=== PATIENT | female | born 1975 | race Caucasian/White ===

== ENCOUNTER 2017-11-24 13:54 | Inpatient (IN) | payer MEDICAID ==
[~2017-11-24] VITALS: Ht 152.4 cm; Wt 105.7 kg
[2017-11-24 14:02] VITALS: Ht 152.4 cm; Wt 105.7 kg
[2017-11-24 15:31] LABS: BASOPHIL % 0.4 % (0-2); PLATELET COUNT 277 x10^3mcL (130-400)
[2017-11-24 15:32] LABS: RED CELL DISTRIBUTION WIDTH 14.7 % (11.5-14.5)
[2017-11-24 15:35] LABS: CALCIUM 8.2 mg/dL (8.5-10.1); CARBON DIOXIDE 30.1 mmol/L (21-32); CHLORIDE SERUM 105 mmol/L (98-107); CREATININE SERUM 0.8 mg/dL (0.6-1.0); GFR1 > 60 mL/min; GLUCOSE SERUM 76 mg/dL (74-106); POTASSIUM SERUM 3.6 mmol/L (3.5-5.1); SODIUM SERUM 141 mmol/L (136-145)
[2017-11-24 19:43] LABS: microscopic required? NO
[2017-11-24 19:47] LABS: UA SPECIFIC GRAVITY 1.015 (1.005-1.035); urine erythrocyte NEGATIVE (NEGATIVE)
[2017-11-24] MEDS ORDERED: SYNTHROID0.15 MG PO (19:47)
[2017-11-24] MEDS ORDERED: ATIVAN1 MG PO (19:48)
[2017-11-24] MEDS ORDERED: ZANTAC 150150 MG PO (19:48)
[2017-11-24] MEDS ORDERED: SINGULAIR10 MG PO (19:48)
[2017-11-24] MEDS ORDERED: NEURONTIN600 MG PO (19:48)
[2017-11-24] MEDS ORDERED: PAXIL10 MG PO (19:48)
[2017-11-24] MEDS ORDERED: MORPHINE SULFAT15 M7 PO (19:48)
[2017-11-24 19:49] LABS: MAGNESIUM 1.9 mg/dL (1.8-2.4); PHOSPHOROUS 3.3 mg/dL (2.5-4.9)
[2017-11-24] MEDS ORDERED: VENTOLIN H0.09 MG/A1 IH (19:49)
[2017-11-24] MEDS ORDERED: SPIRIVA18 MC1 INH (19:49)
[2017-11-24 19:54] LABS: CHOLESTEROL/HDL RATIO 5.6
[2017-11-24 19:56] LABS: AMPHETAMINE QUAL UR NONE DETECTED (See below)
[2017-11-24 19:58] LABS: T3 TOTAL 0.78 ng/mL
[2017-11-24 20:17] VITALS: BP 117/59
[2017-11-24 20:25] LABS: FREE T4 0.99 ng/dL (0.76-1.46); FREE THYROXINE INDEX 2.5 ug/dL (1.4-4.5); T4(THYROXINE) 7.6 ug/dL (4.7-13.3)
[2017-11-25 00:06] VITALS: BP 117/59
[2017-11-25 05:44] VITALS: BP 113/61
[2017-11-25 06:16] LABS: PLATELET COUNT 265 x10^3mcL (130-400); RED CELL DISTRIBUTION WIDTH 14.5 % (11.5-14.5)
[2017-11-25 06:24] LABS: CALCIUM 7.9 mg/dL (8.5-10.1); CHLORIDE SERUM 105 mmol/L (98-107); CREATININE SERUM 0.8 mg/dL (0.6-1.0); GFR1 > 60 mL/min; GLUCOSE SERUM 155 mg/dL (74-106); MAGNESIUM 1.8 mg/dL (1.8-2.4); PHOSPHOROUS 2.7 mg/dL (2.5-4.9); POTASSIUM SERUM 3.8 mmol/L (3.5-5.1); SODIUM SERUM 138 mmol/L (136-145)
[2017-11-25 07:50] LABS: BASOPHIL % 0 % (0-2)
[2017-11-25 09:09] VITALS: BP 119/60
[2017-11-25 16:39] VITALS: BP 105/52
[2017-11-25 20:41] VITALS: BP 108/46
[2017-11-26 05:59] VITALS: BP 123/65
[2017-11-26 06:11] LABS: BASOPHIL % 0.1 % (0-2); PLATELET COUNT 244 x10^3mcL (130-400); RED CELL DISTRIBUTION WIDTH 13.6 % (11.5-14.5)
[2017-11-26 06:32] LABS: AMYLASE 26 U/L (25-115); CALCIUM 7.8 mg/dL (8.5-10.1); CARBON DIOXIDE 29.2 mmol/L (21-32); CHLORIDE SERUM 107 mmol/L (98-107); CHOLESTEROL 178 mg/dL (<200); CHOLESTEROL/HDL RATIO 4.3; CREATININE SERUM 0.7 mg/dL (0.6-1.0); GFR1 > 60 mL/min; GLUCOSE SERUM 75 mg/dL (74-106); HDL CHOLESTEROL 41 mg/dL (40-60); LIPASE 50 IU/L (73-393); MAGNESIUM 2.2 mg/dL (1.8-2.4); POTASSIUM SERUM 3.6 mmol/L (3.5-5.1); SODIUM SERUM 141 mmol/L (136-145); TRIGLYCERIDES 59 mg/dL (<150)
[2017-11-26 08:30] VITALS: BP 136/77
[2017-11-26 16:00] VITALS: BP 117/67
[2017-11-26 17:00] VITALS: BP 153/81
[2017-11-26 18:43] VITALS: BP 144/85
[2017-11-26 19:23] LABS: BASOPHIL % 0.3 % (0-2); PLATELET COUNT 245 x10^3mcL (130-400)
[2017-11-26 19:26] LABS: RED CELL DISTRIBUTION WIDTH 14.8 % (11.5-14.5)
[2017-11-26 19:43] LABS: CARBON DIOXIDE 29.5 mmol/L (21-32); CHLORIDE SERUM 103 mmol/L (98-107); CREATININE SERUM 0.9 mg/dL (0.6-1.0); GFR1 > 60 mL/min; GLUCOSE SERUM 123 mg/dL (74-106); SODIUM SERUM 142 mmol/L (136-145)
[2017-11-26 19:47] LABS: POTASSIUM SERUM 2.8 mmol/L (3.5-5.1)
[2017-11-26 20:16] VITALS: BP 126/80
[2017-11-27 05:24] VITALS: BP 129/69
[2017-11-27 06:34] LABS: CALCIUM 7.8 mg/dL (8.5-10.1); CARBON DIOXIDE 31.6 mmol/L (21-32); CHLORIDE SERUM 104 mmol/L (98-107); CREATININE SERUM 0.8 mg/dL (0.6-1.0); GFR1 > 60 mL/min; GLUCOSE SERUM 81 mg/dL (74-106); POTASSIUM SERUM 3.8 mmol/L (3.5-5.1); SODIUM SERUM 142 mmol/L (136-145)
[2017-11-27 06:50] LABS: BASOPHIL % 0.4 % (0-2); PLATELET COUNT 267 x10^3mcL (130-400); RED CELL DISTRIBUTION WIDTH 14.5 % (11.5-14.5)
[2017-11-27 09:20] VITALS: BP 124/77
[2017-11-27 13:01] VITALS: BP 136/81
[2017-11-27] MEDS ORDERED: NORCO1 TA2 PO (16:01)
[2017-11-27 17:11] VITALS: BP 123/71
[2017-11-27 17:27] VITALS: BP 123/71
== END 2017-11-27 17:31 | disposition home or self-care (01) | DRG 248 ==
LOC: ED 13:54 → MU 18:33 → DU 11-26 17:39
PROVIDERS: Emergency Medicine; Internal Medicine; Surgery
PROC: 0W9G4ZZ Drainage of Peritoneal Cavity, Percutaneous Endoscopic Approach (ICD-10-PCS; principal; 2017-11-25 12:30)
DX: K65.8 Other peritonitis (principal); J96.00 Acute respiratory failure, unspecified whether with hypoxia or hypercapnia; E66.2 Morbid (severe) obesity with alveolar hypoventilation; N83.201 Unspecified ovarian cyst, right side; E83.51 Hypocalcemia; K52.9 Noninfective gastroenteritis and colitis, unspecified; Z68.42 Body mass index [BMI] 45.0-49.9, adult; F41.8 Other specified anxiety disorders; J30.2 Other seasonal allergic rhinitis; G89.29 Other chronic pain; M54.5 Low back pain; E89.0 Postprocedural hypothyroidism; E78.00 Pure hypercholesterolemia, unspecified; Z85.850 Personal history of malignant neoplasm of thyroid; Z90.710 Acquired absence of both cervix and uterus; J45.909 Unspecified asthma, uncomplicated; G47.33 Obstructive sleep apnea (adult) (pediatric)
CPT/HCPCS: 36600; 82962; 83880; 84439; 94150; J0330; J1170; J1200; J1885; J2001; J2270; J2405; J2704; J2710; J2930; J3010; J3480; J3490; J7030; J7120; J7620; Q0162

== ENCOUNTER 2017-11-28 06:27 | Emergency (ER) | payer MEDICAID ==
[~2017-11-28] VITALS: Ht 154.9 cm; Wt 98.9 kg
[~2017-11-28 06:27] MED LIST: ATIVAN1 MG PO; MORPHINE SULFAT15 M7 PO; NEURONTIN600 MG PO; NORCO1 TA2 PO; PAXIL10 MG PO; SINGULAIR10 MG PO; SPIRIVA18 MC1 INH; SYNTHROID0.15 MG PO; VENTOLIN H0.09 MG/A1 IH; ZANTAC 150150 MG PO
[2017-11-28 06:45] VITALS: Ht 154.9 cm; Wt 98.9 kg
[2017-11-28 09:42] LABS: BASOPHIL % 1.3 % (0-2); PLATELET COUNT 303 x10^3mcL (130-400)
[2017-11-28 09:56] LABS: RED CELL DISTRIBUTION WIDTH 14.8 % (11.5-14.5)
[2017-11-28 11:26] VITALS: BP 117/64
== END 2017-11-28 11:26 | disposition home or self-care (01) ==
LOC: ED 06:27
PROVIDERS: Emergency Medicine
DX: N83.202 Unspecified ovarian cyst, left side (principal); N83.201 Unspecified ovarian cyst, right side; Z88.0 Allergy status to penicillin; Z88.1 Allergy status to other antibiotic agents; Z88.2 Allergy status to sulfonamides; Z90.710 Acquired absence of both cervix and uterus; F41.9 Anxiety disorder, unspecified; F32.9 Major depressive disorder, single episode, unspecified; Z98.890 Other specified postprocedural states
CPT/HCPCS: J2270

== ENCOUNTER 2017-12-01 11:50 | Emergency (ER) | payer MEDICAID ==
[~2017-12-01] VITALS: Ht 154.9 cm; Wt 97.1 kg
[2017-12-01 11:58] VITALS: Ht 154.9 cm; Wt 97.1 kg
[2017-12-01 14:48] LABS: BASOPHIL % 0.6 % (0-2); PLATELET COUNT 318 x10^3mcL (130-400); RED CELL DISTRIBUTION WIDTH 14.5 % (11.5-14.5)
[2017-12-01 14:58] LABS: CALCIUM 8.5 mg/dL (8.5-10.1); CARBON DIOXIDE 25.5 mmol/L (21-32); CHLORIDE SERUM 101 mmol/L (98-107); CREATININE SERUM 0.7 mg/dL (0.6-1.0); GFR1 > 60 mL/min; GLUCOSE SERUM 81 mg/dL (74-106); POTASSIUM SERUM 4.2 mmol/L (3.5-5.1); SODIUM SERUM 135 mmol/L (136-145)
[2017-12-01 15:03] LABS: ALBUMIN 3.5 g/dL (3.4-5.0); ALKALINE PHOSPHATASE 93 U/L (46-116); ALT/SGPT 19 U/L (14-59); AST/SGOT 19 U/L (15-37); BILIRUBIN TOTAL 0.5 mg/dL (0.20-1.00); LIPASE 80 IU/L (73-393); TOTAL PROTEIN, SERUM 7.9 g/dL (6.4-8.2)
[2017-12-01 16:45] VITALS: BP 136/69
== END 2017-12-01 16:45 | disposition home or self-care (01) ==
LOC: ED 11:50
PROVIDERS: Emergency Medicine
DX: K29.00 Acute gastritis without bleeding (principal); J45.909 Unspecified asthma, uncomplicated; F41.9 Anxiety disorder, unspecified; F32.9 Major depressive disorder, single episode, unspecified; Z98.890 Other specified postprocedural states; Z90.710 Acquired absence of both cervix and uterus; Z88.1 Allergy status to other antibiotic agents; Z88.0 Allergy status to penicillin; Z88.2 Allergy status to sulfonamides; Z88.6 Allergy status to analgesic agent
CPT/HCPCS: J2270; J2405; J7030; Q0092

== ENCOUNTER 2017-12-03 16:07 | Emergency (ER) | payer MEDICAID ==
[~2017-12-03] VITALS: Ht 154.9 cm; Wt 99.8 kg
[2017-12-03 16:10] VITALS: Ht 154.9 cm; Wt 99.8 kg
[2017-12-03 18:43] VITALS: BP 108/64
== END 2017-12-03 18:43 | disposition home or self-care (01) ==
LOC: ED 16:07
DX: L02.215 Cutaneous abscess of perineum (principal); Z88.0 Allergy status to penicillin; Z88.1 Allergy status to other antibiotic agents; Z88.2 Allergy status to sulfonamides; J45.909 Unspecified asthma, uncomplicated; Z90.710 Acquired absence of both cervix and uterus; F41.9 Anxiety disorder, unspecified; Z98.890 Other specified postprocedural states
CPT/HCPCS: J1885

== ENCOUNTER 2017-12-04 04:33 | Emergency (ER) | payer MEDICAID ==
[~2017-12-04] VITALS: Ht 154.9 cm; Wt 99.3 kg
[2017-12-04 04:50] VITALS: Ht 154.9 cm; Wt 99.3 kg
[2017-12-04 06:59] VITALS: BP 118/72
== END 2017-12-04 07:06 | disposition home or self-care (01) ==
LOC: ED 04:33
DX: L02.214 Cutaneous abscess of groin (principal); L02.412 Cutaneous abscess of left axilla; F41.9 Anxiety disorder, unspecified; F32.9 Major depressive disorder, single episode, unspecified; J45.909 Unspecified asthma, uncomplicated; Z90.710 Acquired absence of both cervix and uterus; Z88.0 Allergy status to penicillin; Z88.2 Allergy status to sulfonamides; Z88.1 Allergy status to other antibiotic agents
CPT/HCPCS: J2001

== ENCOUNTER 2017-12-04 20:46 | Emergency (ER) | payer MEDICAID ==
[~2017-12-04] VITALS: Ht 154.9 cm; Wt 99.8 kg
[2017-12-04 21:02] VITALS: Ht 154.9 cm; Wt 99.8 kg
[2017-12-04 21:57] VITALS: BP 131/95
== END 2017-12-04 22:17 | disposition home or self-care (01) ==
LOC: ED 20:46
DX: G89.18 Other acute postprocedural pain (principal); I10 Essential (primary) hypertension; J45.909 Unspecified asthma, uncomplicated; E03.9 Hypothyroidism, unspecified; Z88.0 Allergy status to penicillin; Z88.2 Allergy status to sulfonamides; Z88.1 Allergy status to other antibiotic agents; Z88.8 Allergy status to other drugs, medicaments and biological substances; Z88.5 Allergy status to narcotic agent
CPT/HCPCS: J1200; J3010

== ENCOUNTER 2017-12-05 10:11 | Emergency (ER) | payer MEDICAID ==
[~2017-12-05] VITALS: Ht 154.9 cm; Wt 99.8 kg
[2017-12-05 10:14] VITALS: Ht 154.9 cm; Wt 99.8 kg
[2017-12-05 14:52] VITALS: BP 120/81
== END 2017-12-05 14:53 | disposition home or self-care (01) ==
LOC: ED 10:11
DX: R07.89 Other chest pain (principal); J45.909 Unspecified asthma, uncomplicated; F41.9 Anxiety disorder, unspecified; Z88.0 Allergy status to penicillin; Z48.01 Encounter for change or removal of surgical wound dressing; Z88.2 Allergy status to sulfonamides; Z88.5 Allergy status to narcotic agent; Z88.1 Allergy status to other antibiotic agents; Z90.710 Acquired absence of both cervix and uterus
CPT/HCPCS: J7620

== ENCOUNTER 2017-12-10 14:21 | Emergency (ER) | payer MEDICAID ==
[~2017-12-10] VITALS: Ht 154.9 cm; Wt 99.8 kg
[2017-12-10 14:33] VITALS: Ht 154.9 cm; Wt 99.8 kg
[2017-12-10 16:05] LABS: BASOPHIL % 0.3 % (0-2); PLATELET COUNT 276 x10^3mcL (130-400); RED CELL DISTRIBUTION WIDTH 14.2 % (11.5-14.5)
[2017-12-10 16:16] LABS: CALCIUM 8.1 mg/dL (8.5-10.1); CARBON DIOXIDE 30.1 mmol/L (21-32); CHLORIDE SERUM 105 mmol/L (98-107); CREATININE SERUM 0.9 mg/dL (0.6-1.0); GFR1 > 60 mL/min; GLUCOSE SERUM 117 mg/dL (74-106); POTASSIUM SERUM 3.2 mmol/L (3.5-5.1); SODIUM SERUM 143 mmol/L (136-145)
[2017-12-10 16:20] LABS: ALKALINE PHOSPHATASE 89 U/L (46-116); ALT/SGPT 14 U/L (14-59); AST/SGOT 5 U/L (15-37); BILIRUBIN TOTAL 0.19 mg/dL (0.20-1.00); LIPASE 101 IU/L (73-393); TOTAL PROTEIN, SERUM 6.8 g/dL (6.4-8.2)
[2017-12-10 16:30] LABS: ALBUMIN 3.1 g/dL (3.4-5.0)
[2017-12-10 17:21] LABS: microscopic required? NO
[2017-12-10 17:44] LABS: UA SPECIFIC GRAVITY >=1.030 (1.005-1.035); urine erythrocyte NEGATIVE (NEGATIVE)
[2017-12-10 20:48] VITALS: BP 131/81
== END 2017-12-10 20:48 | disposition home or self-care (01) ==
LOC: ED 14:21
PROVIDERS: Emergency Medicine
DX: R10.32 Left lower quadrant pain (principal); R11.2 Nausea with vomiting, unspecified; J45.909 Unspecified asthma, uncomplicated; F41.9 Anxiety disorder, unspecified; Z88.0 Allergy status to penicillin; Z88.2 Allergy status to sulfonamides; Z90.6 Acquired absence of other parts of urinary tract; Z90.711 Acquired absence of uterus with remaining cervical stump; Z88.1 Allergy status to other antibiotic agents; Z88.5 Allergy status to narcotic agent
CPT/HCPCS: 87491; 87591; J2270; J2405; J7030

== ENCOUNTER 2017-12-10 23:40 | Inpatient (IN) | payer MEDICAID ==
[~2017-12-10] VITALS: Ht 152.4 cm; Wt 108.0 kg
[2017-12-10 23:44] VITALS: Ht 152.4 cm; Wt 108.0 kg
[2017-12-11 00:35] LABS: CALCIUM 7.5 mg/dL (8.5-10.1); CHLORIDE SERUM 106 mmol/L (98-107); CREATININE SERUM 0.8 mg/dL (0.6-1.0); GFR1 > 60 mL/min; GLUCOSE SERUM 92 mg/dL (74-106); POTASSIUM SERUM 3.7 mmol/L (3.5-5.1); SODIUM SERUM 139 mmol/L (136-145)
[2017-12-11 00:45] LABS: ALKALINE PHOSPHATASE 85 U/L (46-116); ALT/SGPT 17 U/L (14-59); AMYLASE 28 U/L (25-115); AST/SGOT 8 U/L (15-37); BILIRUBIN TOTAL 0.2 mg/dL (0.20-1.00); LIPASE 98 IU/L (73-393); TOTAL PROTEIN, SERUM 6.4 g/dL (6.4-8.2)
[2017-12-11 00:47] LABS: ALBUMIN 2.9 g/dL (3.4-5.0)
[2017-12-11 01:26] LABS: BASOPHIL % 0.1 % (0-2); PLATELET COUNT 258 x10^3mcL (130-400); RED CELL DISTRIBUTION WIDTH 13.1 % (11.5-14.5)
[2017-12-11 01:48] LABS: MAGNESIUM 2.1 mg/dL (1.8-2.4); PHOSPHOROUS 3.9 mg/dL (2.5-4.9)
[2017-12-11 03:08] VITALS: BP 103/61
[2017-12-11 05:10] VITALS: BP 108/54
[2017-12-11 07:50] VITALS: BP 119/66
[2017-12-11 07:55] LABS: BASOPHIL % 0.3 % (0-2)
[2017-12-11 08:03] LABS: CALCIUM 7.5 mg/dL (8.5-10.1); CARBON DIOXIDE 30.9 mmol/L (21-32); CHLORIDE SERUM 107 mmol/L (98-107); CREATININE SERUM 0.8 mg/dL (0.6-1.0); GFR1 > 60 mL/min; GLUCOSE SERUM 75 mg/dL (74-106); POTASSIUM SERUM 3.7 mmol/L (3.5-5.1); SODIUM SERUM 138 mmol/L (136-145)
[2017-12-11 08:05] LABS: PLATELET COUNT 254 x10^3mcL (130-400)
[2017-12-11 12:37] VITALS: BP 116/59
[2017-12-11 14:49] LABS: microscopic required? NO
[2017-12-11 15:14] LABS: urine erythrocyte NEGATIVE (NEGATIVE)
[2017-12-11 16:16] VITALS: BP 124/70
[2017-12-11 20:26] VITALS: BP 112/63
[2017-12-12 05:30] VITALS: BP 98/51
[2017-12-12 06:07] LABS: BASOPHIL % 0.3 % (0-2); RED CELL DISTRIBUTION WIDTH 13.6 % (11.5-14.5)
[2017-12-12 06:28] LABS: CALCIUM 7.5 mg/dL (8.5-10.1); CHLORIDE SERUM 109 mmol/L (98-107); CREATININE SERUM 0.8 mg/dL (0.6-1.0); GFR1 > 60 mL/min; GLUCOSE SERUM 78 mg/dL (74-106); POTASSIUM SERUM 3.4 mmol/L (3.5-5.1); SODIUM SERUM 145 mmol/L (136-145)
[2017-12-12 06:33] LABS: PLATELET COUNT 242 x10^3mcL (130-400)
[2017-12-12 07:45] VITALS: BP 103/56
[2017-12-12 12:56] VITALS: BP 111/65
[2017-12-12 16:52] VITALS: BP 115/70
[2017-12-12 20:44] VITALS: BP 101/42
[2017-12-13 06:02] LABS: CALCIUM 7.3 mg/dL (8.5-10.1); CARBON DIOXIDE 28.8 mmol/L (21-32); CHLORIDE SERUM 106 mmol/L (98-107); CREATININE SERUM 0.7 mg/dL (0.6-1.0); GFR1 > 60 mL/min; GLUCOSE SERUM 88 mg/dL (74-106); POTASSIUM SERUM 3.6 mmol/L (3.5-5.1); SODIUM SERUM 139 mmol/L (136-145)
[2017-12-13 06:04] LABS: BASOPHIL % 0.5 % (0-2); PLATELET COUNT 250 x10^3mcL (130-400); RED CELL DISTRIBUTION WIDTH 13.3 % (11.5-14.5)
[2017-12-13 06:15] VITALS: BP 116/66
[2017-12-13 09:07] VITALS: BP 96/53
[2017-12-13 17:09] VITALS: BP 100/64
[2017-12-13 20:00] VITALS: BP 107/55
[2017-12-14 05:26] VITALS: BP 101/54
[2017-12-14 06:27] LABS: BASOPHIL % 0.4 % (0-2); PLATELET COUNT 253 x10^3mcL (130-400); RED CELL DISTRIBUTION WIDTH 14.3 % (11.5-14.5)
[2017-12-14 06:58] LABS: CALCIUM 7.8 mg/dL (8.5-10.1); CARBON DIOXIDE 28.5 mmol/L (21-32); CHLORIDE SERUM 105 mmol/L (98-107); CREATININE SERUM 0.7 mg/dL (0.6-1.0); GFR1 > 60 mL/min; GLUCOSE SERUM 89 mg/dL (74-106); POTASSIUM SERUM 3.8 mmol/L (3.5-5.1); SODIUM SERUM 140 mmol/L (136-145)
[2017-12-14 08:39] VITALS: BP 96/57
[2017-12-14 12:02] VITALS: BP 111/61
[2017-12-14 16:35] VITALS: BP 101/60
[2017-12-14 20:23] VITALS: BP 106/57
[2017-12-15 05:53] VITALS: BP 100/56
[2017-12-15 07:43] VITALS: BP 105/56
[2017-12-15] MEDS ORDERED: ZYV600 PO (11:22)
[2017-12-15 11:57] VITALS: BP 105/56; BP 107/55
== END 2017-12-15 12:37 | disposition home or self-care (01) | DRG 251 ==
LOC: ED 23:40 → MU 12-11 00:21
PROVIDERS: Internal Medicine; Specialist
DX: R10.32 Left lower quadrant pain (principal); E44.0 Moderate protein-calorie malnutrition; L08.9 Local infection of the skin and subcutaneous tissue, unspecified; B95.62 Methicillin resistant Staphylococcus aureus infection as the cause of diseases classified elsewhere; E87.6 Hypokalemia; M51.26 Other intervertebral disc displacement, lumbar region; G89.29 Other chronic pain; J45.909 Unspecified asthma, uncomplicated; F32.9 Major depressive disorder, single episode, unspecified; F41.9 Anxiety disorder, unspecified; Z68.41 Body mass index [BMI] 40.0-44.9, adult; Z85.850 Personal history of malignant neoplasm of thyroid; Z86.14 Personal history of Methicillin resistant Staphylococcus aureus infection; Z16.24 Resistance to multiple antibiotics; Z76.5 Malingerer [conscious simulation]
CPT/HCPCS: J0878; J2270; J2405; J3490; J7030; J7050; Q0092

== ENCOUNTER 2017-12-19 11:47 | Emergency (ER) | payer MEDICAID ==
[~2017-12-19] VITALS: Ht 165.1 cm; Wt 99.8 kg
[~2017-12-19 11:47] MED LIST changes: +ZYV600 PO
[2017-12-19 11:57] VITALS: Ht 165.1 cm; Wt 99.8 kg
[2017-12-19 13:01] LABS: microscopic required? NO
[2017-12-19 13:09] LABS: UA SPECIFIC GRAVITY 1.015 (1.005-1.035); urine erythrocyte NEGATIVE (NEGATIVE)
[2017-12-19 13:46] LABS: CALCIUM 7.7 mg/dL (8.5-10.1); CARBON DIOXIDE 29.7 mmol/L (21-32); CHLORIDE SERUM 104 mmol/L (98-107); CREATININE SERUM 0.7 mg/dL (0.6-1.0); GFR1 > 60 mL/min; GLUCOSE SERUM 72 mg/dL (74-106); POTASSIUM SERUM 3.5 mmol/L (3.5-5.1); SODIUM SERUM 140 mmol/L (136-145)
[2017-12-19 13:51] LABS: ALKALINE PHOSPHATASE 97 U/L (46-116); ALT/SGPT 20 U/L (14-59); AST/SGOT 12 U/L (15-37); BILIRUBIN TOTAL 0.2 mg/dL (0.20-1.00); TOTAL PROTEIN, SERUM 6.8 g/dL (6.4-8.2)
[2017-12-19 14:24] LABS: BASOPHIL % 0.4 % (0-2); PLATELET COUNT 257 x10^3mcL (130-400); RED CELL DISTRIBUTION WIDTH 14.2 % (11.5-14.5)
[2017-12-19 14:35] VITALS: BP 102/53
== END 2017-12-19 14:32 | disposition home or self-care (01) ==
LOC: ED 11:47
PROVIDERS: Emergency Medicine
DX: R10.32 Left lower quadrant pain (principal); R11.2 Nausea with vomiting, unspecified; J45.909 Unspecified asthma, uncomplicated; F41.9 Anxiety disorder, unspecified; G89.29 Other chronic pain; M54.5 Low back pain; Z88.0 Allergy status to penicillin; Z88.2 Allergy status to sulfonamides; Z88.5 Allergy status to narcotic agent; Z88.8 Allergy status to other drugs, medicaments and biological substances; Z88.1 Allergy status to other antibiotic agents; Z90.89 Acquired absence of other organs
CPT/HCPCS: J1885; J2270; J2405

== ENCOUNTER 2017-12-24 16:02 | Emergency (ER) | payer MEDICAID ==
[~2017-12-24] VITALS: Ht 154.9 cm; Wt 99.6 kg
[2017-12-24 16:20] VITALS: Ht 154.9 cm; Wt 99.6 kg
[2017-12-24 17:06] LABS: BASOPHIL % 0.5 % (0-2); PLATELET COUNT 296 x10^3mcL (130-400); RED CELL DISTRIBUTION WIDTH 14.3 % (11.5-14.5)
[2017-12-24 17:21] LABS: microscopic required? NO
[2017-12-24 17:24] LABS: CALCIUM 8.2 mg/dL (8.5-10.1); CARBON DIOXIDE 26.1 mmol/L (21-32); CHLORIDE SERUM 104 mmol/L (98-107); CREATININE SERUM 0.9 mg/dL (0.6-1.0); GFR1 > 60 mL/min; GLUCOSE SERUM 86 mg/dL (74-106); POTASSIUM SERUM 3.3 mmol/L (3.5-5.1); SODIUM SERUM 139 mmol/L (136-145)
[2017-12-24 17:31] LABS: UA SPECIFIC GRAVITY 1.015 (1.005-1.035); urine erythrocyte NEGATIVE (NEGATIVE)
[2017-12-24 17:36] LABS: ALKALINE PHOSPHATASE 89 U/L (46-116); ALT/SGPT 24 U/L (14-59); AST/SGOT 13 U/L (15-37); BILIRUBIN TOTAL 0.2 mg/dL (0.20-1.00); LIPASE 95 IU/L (73-393); TOTAL PROTEIN, SERUM 7.1 g/dL (6.4-8.2)
[2017-12-24 17:37] LABS: ALBUMIN 3.3 g/dL (3.4-5.0)
[2017-12-24 17:40] LABS: AMPHETAMINE QUAL UR NONE DETECTED (See below)
[2017-12-24 18:34] VITALS: BP 148/78
== END 2017-12-24 18:34 | disposition home or self-care (01) ==
LOC: ED 16:02
PROVIDERS: Emergency Medicine
DX: G89.29 Other chronic pain (principal); R10.2 Pelvic and perineal pain; J45.909 Unspecified asthma, uncomplicated; F41.9 Anxiety disorder, unspecified; Z90.711 Acquired absence of uterus with remaining cervical stump; Z88.0 Allergy status to penicillin; Z88.1 Allergy status to other antibiotic agents; Z88.2 Allergy status to sulfonamides; Z88.6 Allergy status to analgesic agent
CPT/HCPCS: J2405; J3490; J7030; Q0163

== ENCOUNTER 2018-01-01 10:34 | Emergency (ER) | payer MEDICAID ==
[2018-01-01 10:46] VITALS: Ht 154.9 cm
[2018-01-01 11:21] LABS: BASOPHIL % 0.4 % (0-2); PLATELET COUNT 304 x10^3mcL (130-400); RED CELL DISTRIBUTION WIDTH 14.1 % (11.5-14.5)
[2018-01-01 11:29] LABS: CALCIUM 8.5 mg/dL (8.5-10.1); CARBON DIOXIDE 25.1 mmol/L (21-32); CHLORIDE SERUM 104 mmol/L (98-107); CREATININE SERUM 0.7 mg/dL (0.6-1.0); GFR1 > 60 mL/min; GLUCOSE SERUM 90 mg/dL (74-106); POTASSIUM SERUM 3.7 mmol/L (3.5-5.1); SODIUM SERUM 140 mmol/L (136-145)
[2018-01-01 11:33] LABS: ALBUMIN 3.5 g/dL (3.4-5.0); ALKALINE PHOSPHATASE 97 U/L (46-116); ALT/SGPT 14 U/L (14-59); AST/SGOT 13 U/L (15-37); LIPASE 58 IU/L (73-393); TOTAL PROTEIN, SERUM 7.8 g/dL (6.4-8.2)
[2018-01-01 11:40] LABS: AMYLASE 22 U/L (25-115)
[2018-01-01 13:40] VITALS: BP 130/68
== END 2018-01-01 13:40 | disposition home or self-care (01) ==
LOC: ED 10:34
PROVIDERS: Emergency Medicine
DX: R10.10 Upper abdominal pain, unspecified (principal); R11.2 Nausea with vomiting, unspecified; R50.9 Fever, unspecified; J45.909 Unspecified asthma, uncomplicated; F41.9 Anxiety disorder, unspecified; G89.29 Other chronic pain; M54.9 Dorsalgia, unspecified; Z90.711 Acquired absence of uterus with remaining cervical stump; Z90.89 Acquired absence of other organs; Z88.0 Allergy status to penicillin; Z88.2 Allergy status to sulfonamides; Z88.1 Allergy status to other antibiotic agents; Z88.6 Allergy status to analgesic agent
CPT/HCPCS: J1885; J2405; J2550; J3010; J3490; J7030; Q0092

== ENCOUNTER 2018-01-02 12:43 | Emergency (ER) | payer MEDICAID ==
[~2018-01-02] VITALS: Ht 154.9 cm; Wt 97.1 kg
[2018-01-02 12:51] VITALS: Ht 154.9 cm; Wt 97.1 kg
[2018-01-02 14:15] LABS: BASOPHIL % 0.7 % (0-2); PLATELET COUNT 310 x10^3mcL (130-400); RED CELL DISTRIBUTION WIDTH 14.3 % (11.5-14.5)
[2018-01-02 14:28] LABS: CALCIUM 9.4 mg/dL (8.5-10.1); CARBON DIOXIDE 25.7 mmol/L (21-32); CHLORIDE SERUM 105 mmol/L (98-107); CREATININE SERUM 0.7 mg/dL (0.6-1.0); GFR1 > 60 mL/min; GLUCOSE SERUM 81 mg/dL (74-106); POTASSIUM SERUM 3.7 mmol/L (3.5-5.1); SODIUM SERUM 141 mmol/L (136-145)
[2018-01-02 14:33] LABS: ALBUMIN 3.5 g/dL (3.4-5.0); ALKALINE PHOSPHATASE 83 U/L (46-116); ALT/SGPT 18 U/L (14-59); AST/SGOT 10 U/L (15-37); BILIRUBIN TOTAL 0.2 mg/dL (0.20-1.00); LIPASE 84 IU/L (73-393); TOTAL PROTEIN, SERUM 7.6 g/dL (6.4-8.2)
[2018-01-02 17:23] VITALS: BP 119/79
== END 2018-01-02 17:23 | disposition home or self-care (01) ==
LOC: ED 12:43
PROVIDERS: Emergency Medicine
DX: R10.13 Epigastric pain (principal); R11.10 Vomiting, unspecified; F41.9 Anxiety disorder, unspecified; G89.29 Other chronic pain; J45.909 Unspecified asthma, uncomplicated; Z98.890 Other specified postprocedural states; Z88.0 Allergy status to penicillin; Z88.2 Allergy status to sulfonamides; Z88.1 Allergy status to other antibiotic agents; Z88.6 Allergy status to analgesic agent; Z88.8 Allergy status to other drugs, medicaments and biological substances; Z90.711 Acquired absence of uterus with remaining cervical stump; Z90.49 Acquired absence of other specified parts of digestive tract
CPT/HCPCS: J1885; J2765

== ENCOUNTER 2018-04-21 00:18 | Inpatient (IN) | payer MEDICAID ==
[~2018-04-21] VITALS: Ht 154.9 cm; Wt 101.3 kg
[2018-04-21 00:29] VITALS: Ht 154.9 cm; Wt 101.3 kg
[2018-04-21 01:17] LABS: BASOPHIL % 0.1 % (0-2); PLATELET COUNT 313 x10^3mcL (130-400)
[2018-04-21 01:19] LABS: CALCIUM 8.2 mg/dL (8.5-10.1); CARBON DIOXIDE 26.1 mmol/L (21-32); CHLORIDE SERUM 107 mmol/L (98-107); CREATININE SERUM 0.9 mg/dL (0.6-1.0); GFR1 > 60 mL/min; GLUCOSE SERUM 113 mg/dL (74-106); POTASSIUM SERUM 3.1 mmol/L (3.5-5.1); SODIUM SERUM 140 mmol/L (136-145)
[2018-04-21 01:20] LABS: RED CELL DISTRIBUTION WIDTH 16.8 % (11.5-14.5)
[2018-04-21 01:24] LABS: ALKALINE PHOSPHATASE 106 U/L (46-116); ALT/SGPT 21 U/L (14-59); AST/SGOT 11 U/L (15-37); BILIRUBIN TOTAL 0.17 mg/dL (0.20-1.00); TOTAL PROTEIN, SERUM 7.1 g/dL (6.4-8.2)
[2018-04-21 04:11] LABS: MAGNESIUM 2.1 mg/dL (1.8-2.4)
[2018-04-21 04:17] LABS: T3 TOTAL 0.69 ng/mL
[2018-04-21 04:18] LABS: FREE T4 1.19 ng/dL (0.76-1.46); FREE THYROXINE INDEX 2.7 ug/dL (1.4-4.5); T4(THYROXINE) 7.6 ug/dL (4.7-13.3)
[2018-04-21 04:19] LABS: CHOLESTEROL/HDL RATIO 5.3
[2018-04-21 04:26] VITALS: BP 114/67
[2018-04-21 04:36] VITALS: BP 114/67
[2018-04-21 04:51] LABS: microscopic required? NO
[2018-04-21 05:17] LABS: UA SPECIFIC GRAVITY 1.025 (1.005-1.035); urine erythrocyte NEGATIVE (NEGATIVE)
[2018-04-21 05:37] LABS: AMPHETAMINE QUAL UR NONE DETECTED (See below)
[2018-04-21 09:32] VITALS: BP 101/61
[2018-04-21 10:35] LABS: BASOPHIL % 0.3 % (0-2); PLATELET COUNT 286 x10^3mcL (130-400)
[2018-04-21 10:43] LABS: RED CELL DISTRIBUTION WIDTH 16.7 % (11.5-14.5)
[2018-04-21 10:51] LABS: CALCIUM 7.4 mg/dL (8.5-10.1); CARBON DIOXIDE 25.6 mmol/L (21-32); CHLORIDE SERUM 108 mmol/L (98-107); CREATININE SERUM 0.9 mg/dL (0.6-1.0); GFR1 > 60 mL/min; GLUCOSE SERUM 94 mg/dL (74-106); MAGNESIUM 2.1 mg/dL (1.8-2.4); PHOSPHOROUS 3.2 mg/dL (2.5-4.9); POTASSIUM SERUM 3.5 mmol/L (3.5-5.1); SODIUM SERUM 142 mmol/L (136-145)
[2018-04-21 12:22] VITALS: BP 101/61
== END 2018-04-21 13:45 | disposition home or self-care (01) | DRG 57 ==
LOC: ED 00:18 → DU 03:27
PROVIDERS: Emergency Medicine; ADMIT Family Medicine
DX: S06.9X1A Unspecified intracranial injury with loss of consciousness of 30 minutes or less, initial encounter (principal); E44.0 Moderate protein-calorie malnutrition; E66.01 Morbid (severe) obesity due to excess calories; G90.9 Disorder of the autonomic nervous system, unspecified; Z68.41 Body mass index [BMI] 40.0-44.9, adult; R55 Syncope and collapse; L02.92 Furuncle, unspecified; B95.62 Methicillin resistant Staphylococcus aureus infection as the cause of diseases classified elsewhere; M51.26 Other intervertebral disc displacement, lumbar region; G89.29 Other chronic pain; E87.6 Hypokalemia; E89.0 Postprocedural hypothyroidism; J45.909 Unspecified asthma, uncomplicated; F32.9 Major depressive disorder, single episode, unspecified; F41.9 Anxiety disorder, unspecified; W18.39XA Other fall on same level, initial encounter; Y92.012 Bathroom of single-family (private) house as the place of occurrence of the external cause; Z85.850 Personal history of malignant neoplasm of thyroid; Z16.24 Resistance to multiple antibiotics
CPT/HCPCS: 83880; 84439; J0878; J1885; J2270; J2405; J3370; J3490; J7050; Q0092

== ENCOUNTER 2018-05-10 13:47 | Emergency (ER) | payer MEDICAID ==
[~2018-05-10] VITALS: Ht 154.9 cm; Wt 99.3 kg
[2018-05-10 13:52] VITALS: Ht 154.9 cm; Wt 99.3 kg
[2018-05-10 17:12] VITALS: BP 106/74
== END 2018-05-10 17:12 | disposition home or self-care (01) ==
LOC: ED 13:47
DX: G89.29 Other chronic pain (principal); R10.2 Pelvic and perineal pain; J45.909 Unspecified asthma, uncomplicated; F41.9 Anxiety disorder, unspecified; Z90.711 Acquired absence of uterus with remaining cervical stump; Z90.89 Acquired absence of other organs; Z98.890 Other specified postprocedural states; Z88.0 Allergy status to penicillin; Z88.1 Allergy status to other antibiotic agents; Z88.8 Allergy status to other drugs, medicaments and biological substances
CPT/HCPCS: J1885; J3490

== ENCOUNTER 2018-05-10 23:45 | Emergency (ER) | payer MEDICAID ==
[~2018-05-10] VITALS: Ht 154.9 cm; Wt 100.2 kg
[2018-05-10 23:53] VITALS: Ht 154.9 cm; Wt 100.2 kg
[2018-05-11 01:33] LABS: BASOPHIL % 0.5 % (0-2); PLATELET COUNT 332 x10^3mcL (130-400)
[2018-05-11 01:42] LABS: CALCIUM 8.1 mg/dL (8.5-10.1); CARBON DIOXIDE 26.1 mmol/L (21-32); CHLORIDE SERUM 106 mmol/L (98-107); CREATININE SERUM 0.8 mg/dL (0.6-1.0); GFR1 > 60 mL/min; GLUCOSE SERUM 102 mg/dL (74-106); POTASSIUM SERUM 4.1 mmol/L (3.5-5.1); SODIUM SERUM 140 mmol/L (136-145)
[2018-05-11 01:45] LABS: RED CELL DISTRIBUTION WIDTH 16.3 % (11.5-14.5)
[2018-05-11 01:46] LABS: ALBUMIN 2.8 g/dL (3.4-5.0); ALKALINE PHOSPHATASE 105 U/L (46-116); ALT/SGPT 20 U/L (14-59); AST/SGOT 15 U/L (15-37); BILIRUBIN TOTAL 0.14 mg/dL (0.20-1.00); LIPASE 66 IU/L (73-393); TOTAL PROTEIN, SERUM 6.9 g/dL (6.4-8.2)
[2018-05-11 03:58] VITALS: BP 103/66
== END 2018-05-11 03:58 | disposition home or self-care (01) ==
LOC: ED 23:45
PROVIDERS: Emergency Medicine
DX: N83.201 Unspecified ovarian cyst, right side (principal); G89.29 Other chronic pain; J45.909 Unspecified asthma, uncomplicated; F41.9 Anxiety disorder, unspecified; Z88.0 Allergy status to penicillin; Z88.2 Allergy status to sulfonamides; Z88.1 Allergy status to other antibiotic agents; Z90.711 Acquired absence of uterus with remaining cervical stump
CPT/HCPCS: J2270; J2405; J7030

== ENCOUNTER 2018-05-15 13:38 | Emergency (ER) | payer MEDICAID | END 2018-05-15 15:00 | disposition left against medical advice (07) | LOC: ED 13:38 | DX: Z53.21 Procedure and treatment not carried out due to patient leaving prior to being seen by health care provider (principal) ==

== ENCOUNTER 2018-05-16 00:22 | Emergency (ER) | payer MEDICAID ==
[~2018-05-16] VITALS: Ht 160 cm; Wt 97.5 kg
[2018-05-16 00:27] VITALS: Ht 160 cm; Wt 97.5 kg
[2018-05-16 02:21] VITALS: BP 115/67
== END 2018-05-16 02:21 | disposition home or self-care (01) ==
LOC: ED 00:22
DX: G89.4 Chronic pain syndrome (principal); R11.2 Nausea with vomiting, unspecified; J45.909 Unspecified asthma, uncomplicated; F41.9 Anxiety disorder, unspecified; Z90.89 Acquired absence of other organs; Z90.711 Acquired absence of uterus with remaining cervical stump; Z98.890 Other specified postprocedural states; Z88.2 Allergy status to sulfonamides; Z88.0 Allergy status to penicillin; Z88.1 Allergy status to other antibiotic agents; Z88.8 Allergy status to other drugs, medicaments and biological substances
CPT/HCPCS: J1885

== ENCOUNTER 2019-12-01 18:45 | Emergency (ER) | payer OTHER, MEDICAID ==
[~2019-12-01] VITALS: Ht 154.9 cm; Wt 108.4 kg
[2019-12-01 18:49] VITALS: Ht 154.9 cm; Wt 108.4 kg
[2019-12-01 20:29] LABS: BASOPHIL % 0.5 % (0-2); PLATELET COUNT 234 x10^3mcL (130-400)
[2019-12-01 20:33] LABS: RED CELL DISTRIBUTION WIDTH 16.1 % (11.5-14.5)
[2019-12-01 21:08] LABS: CALCIUM 8.2 mg/dL (8.5-10.1); CARBON DIOXIDE 27.1 mmol/L (21-32); CHLORIDE SERUM 102 mmol/L (98-107); CREATININE SERUM 0.8 mg/dL (0.6-1.0); GFR1 > 60 mL/min; GLUCOSE SERUM 132 mg/dL (74-106); POTASSIUM SERUM 3.5 mmol/L (3.5-5.1); SODIUM SERUM 136 mmol/L (136-145)
[2019-12-01 21:13] LABS: ALKALINE PHOSPHATASE 116 U/L (46-116); ALT/SGPT 21 U/L (14-59); AST/SGOT 11 U/L (15-37); BILIRUBIN TOTAL 0.1 mg/dL (0.20-1.00); LIPASE 74 IU/L (73-393); TOTAL PROTEIN, SERUM 7.1 g/dL (6.4-8.2)
[2019-12-01 21:19] LABS: ALBUMIN 2.9 g/dL (3.4-5.0)
[2019-12-01 22:40] VITALS: BP 132/81
== END 2019-12-01 22:40 | disposition home or self-care (01) ==
LOC: ED 18:45
PROVIDERS: Emergency Medicine
DX: R06.02 Shortness of breath (principal); R11.10 Vomiting, unspecified; G89.29 Other chronic pain; E66.01 Morbid (severe) obesity due to excess calories; Z90.711 Acquired absence of uterus with remaining cervical stump; Z90.89 Acquired absence of other organs; Z88.0 Allergy status to penicillin; Z88.1 Allergy status to other antibiotic agents; Z88.2 Allergy status to sulfonamides; Z88.8 Allergy status to other drugs, medicaments and biological substances
CPT/HCPCS: 83880; 85378; J1885; J2270; Q0092